=== PATIENT | female | born 1985 | race Two or more races ===

== ENCOUNTER → 2021-09-02 | Outpatient (CLI) | payer BC ==
[2021-09-02 12:11] LABS: Basophils # (auto) 0.1 10 ^3/uL (0-0.2); Eosinophils # (auto) 0.2 10 ^3/uL (0-0.8); Eosinophils % (auto) 1.6 % (0.0-7.0); Hematocrit 38.9 % (36.0-46.0); Hemoglobin 13.5 g/dL (12.2-16.2); Lymphocytes # (auto) 1.9 10 ^3/uL (0.4-5.4); Lymphocytes % (auto) 18.3 % (10.0-50.0); Mean Corpuscular Hemoglobin 30.5 pg (28.0-32.0); Mean Corpuscular Hgb Conc. 34.8 g/dL (32.0-36.0); Mean Corpuscular Volume 87.6 fL (80.0-100.0); Monocytes # (auto) 0.6 10 ^3/uL (0-1.3); Monocytes % (auto) 5.8 % (0.0-12.0); Neutrophils # (auto) 7.4 10 ^3/uL (1.6-8.6); Neutrophils % (auto) 73.3 % (37.0-80.0); Nucleated Red Blood Cells % 0.1 %; Red Blood Cells 4.44 10^6/uL (4.0-5.20); Red Cell Distribution Width 13.1 % (11.8-14.3); White Blood Cell 10.1 10^3/uL (4.4-10.8)
[2021-09-02 12:43] LABS: Alcohol, Urine < 3.0 mg/dL (0-10); Amphetamine Screen, Urine NEGATIVE (NEGATIVE); Barbiturate Scree,Urine NEGATIVE (NEGATIVE); Benzodiazephine Screen, Urine NEGATIVE (NEGATIVE); Cannabinoid Screen, Urine NEGATIVE (NEGATIVE); Cocaine Screen, Urine NEGATIVE (NEGATIVE); Opiate Scree,Urine NEGATIVE (NEGATIVE); Phencyclidine Screen, Urine NEGATIVE (NEGATIVE)
[2021-09-03 06:06] LABS: RPR Non Reactive (Non Reactive)
== END | disposition home or self-care (01) ==
LOC: LAB 11:29
PROVIDERS: ATTEND Obstetrics & Gynecology
DX: Z31.430 Encounter of female for testing for genetic disease carrier status for procreative management (principal); Z34.00 Encounter for supervision of normal first pregnancy, unspecified trimester; Z36.0 Encounter for antenatal screening for chromosomal anomalies; N39.0 Urinary tract infection, site not specified
CPT/HCPCS: 36415; 80307; 83036; 84112; 84702; 85025; 86592; 86703; 86762; 86850; 86900; 86901; 87086; 87340

== ENCOUNTER 2021-10-30 17:20 | Observation (INO) | payer BC ==
[~2021-10-30] VITALS: Ht 157.5 cm; Wt 94.8 kg
[2021-10-30] MEDS ORDERED: PREN-96 PO (17:55)
[2021-10-30] MEDS ORDERED: LABE100T4 PO (19:20)
== END 2021-10-30 18:30 | disposition home or self-care (01) ==
LOC: LDRP 17:20
PROVIDERS: ADMIT Obstetrics & Gynecology; ATTEND Obstetrics & Gynecology
DX: O98.512 Other viral diseases complicating pregnancy, second trimester (principal); U07.1 COVID-19; O10.912 Unspecified pre-existing hypertension complicating pregnancy, second trimester; O26.892 Other specified pregnancy related conditions, second trimester; R05.9 Cough, unspecified; R51.9 Headache, unspecified; Z3A.19 19 weeks gestation of pregnancy
CPT/HCPCS: 36415; 59025; 81002; 87426; 94760; G0378; U0003

== ENCOUNTER 2021-12-25 08:04 | Observation (INO) | payer BC ==
[~2021-12-25 08:04] MED LIST: LABE100T4 PO; PREN-96 PO
== END 2021-12-25 10:42 | disposition home or self-care (01) ==
LOC: LDRP 08:04 → UNDOADMOB 08:23 → LDRP 08:23 → UNDODISOB 10:42
PROVIDERS: ADMIT Obstetrics & Gynecology; ATTEND Obstetrics & Gynecology
DX: O24.419 Gestational diabetes mellitus in pregnancy, unspecified control (principal); O13.3 Gestational [pregnancy-induced] hypertension without significant proteinuria, third trimester; Z3A.28 28 weeks gestation of pregnancy
CPT/HCPCS: 59025; 76818; 81002; 82948; 82962; 94760; G0378

== ENCOUNTER 2022-01-02 08:23 | Observation (INO) | payer BC | END 2022-01-02 10:54 | disposition home or self-care (01) | LOC: LDRP 08:23 | PROVIDERS: ADMIT Obstetrics & Gynecology; ATTEND Obstetrics & Gynecology | DX: O24.419 Gestational diabetes mellitus in pregnancy, unspecified control (principal); O13.3 Gestational [pregnancy-induced] hypertension without significant proteinuria, third trimester; Z3A.29 29 weeks gestation of pregnancy | CPT/HCPCS: 59025; 76818; 81002; 82948; 82962; 94760; G0378 ==

== ENCOUNTER 2022-01-09 08:13 | Observation (INO) | payer BC ==
[2022-01-09] MEDS ORDERED: METF-370 PO (10:24)
== END 2022-01-09 10:35 | disposition home or self-care (01) ==
LOC: LDRP 08:13
PROVIDERS: ADMIT Obstetrics & Gynecology; ATTEND Obstetrics & Gynecology
DX: O10.913 Unspecified pre-existing hypertension complicating pregnancy, third trimester (principal); O24.419 Gestational diabetes mellitus in pregnancy, unspecified control; Z3A.30 30 weeks gestation of pregnancy; Z79.899 Other long term (current) drug therapy
CPT/HCPCS: 59025; 76818; 81002; 82948; 82962; 94760; G0378

== ENCOUNTER 2022-01-16 07:55 | Observation (INO) | payer BC ==
[~2022-01-16 07:55] MED LIST changes: +METF-370 PO
[2022-01-16] MEDS ORDERED: ACCU-CHEK COMFORT CURVE STRIP VI ONE (08:30)
[2022-01-16] MEDS ORDERED: LACTATED RINGER'S 1,000 ML IV ONE (10:00)
== END 2022-01-16 10:55 | disposition home or self-care (01) ==
LOC: LDRP 07:55
PROVIDERS: ADMIT Obstetrics & Gynecology Obstetrics; ATTEND Obstetrics & Gynecology Obstetrics
DX: O24.415 Gestational diabetes mellitus in pregnancy, controlled by oral hypoglycemic drugs (principal); O10.913 Unspecified pre-existing hypertension complicating pregnancy, third trimester; Z3A.31 31 weeks gestation of pregnancy; Z79.84 Long term (current) use of oral hypoglycemic drugs
CPT/HCPCS: 59025; 76818; 81002; 82948; 82962; 94760; 96360; 96361; G0378

== ENCOUNTER 2022-01-19 07:13 | Observation (INO) | payer BC ==
[2022-01-19] MEDS ORDERED: GLIP5TAB12 PO (17:35)
== END 2022-01-19 17:50 | disposition home or self-care (01) ==
LOC: LDRP 15:00 → UNDOADMOB 15:00 → LDRP 16:40 → UNDODISOB 17:50
PROVIDERS: ADMIT Obstetrics & Gynecology; ATTEND Obstetrics & Gynecology
DX: O24.419 Gestational diabetes mellitus in pregnancy, unspecified control (principal); O13.3 Gestational [pregnancy-induced] hypertension without significant proteinuria, third trimester; Z3A.31 31 weeks gestation of pregnancy; Z79.899 Other long term (current) drug therapy
CPT/HCPCS: 59025; 76818; 81002; 82948; 82962; 94760; G0378

== ENCOUNTER 2022-01-22 19:07 | Observation (INO) | payer BC ==
[~2022-01-22 19:07] MED LIST changes: +GLIP5TAB12 PO
== END 2022-01-22 21:58 | disposition home or self-care (01) ==
LOC: LDRP 19:07
PROVIDERS: ADMIT Obstetrics & Gynecology; ATTEND Obstetrics & Gynecology
DX: O24.419 Gestational diabetes mellitus in pregnancy, unspecified control (principal); O60.03 Preterm labor without delivery, third trimester; Z3A.32 32 weeks gestation of pregnancy; Z79.899 Other long term (current) drug therapy
CPT/HCPCS: 59025; 76818; 81002; 82948; 82962; G0378

== ENCOUNTER 2022-01-26 19:07 | Observation (INO) | payer BC | END 2022-01-26 21:07 | disposition home or self-care (01) | LOC: LDRP 19:07 | PROVIDERS: ADMIT Obstetrics & Gynecology; ATTEND Obstetrics & Gynecology | DX: O24.419 Gestational diabetes mellitus in pregnancy, unspecified control (principal); O13.3 Gestational [pregnancy-induced] hypertension without significant proteinuria, third trimester; Z3A.34 34 weeks gestation of pregnancy | CPT/HCPCS: 59025; 76818; 81002; 82948; 82962; 94760; G0378 ==

== ENCOUNTER 2022-01-29 11:15 | Observation (INO) | payer BC ==
[~2022-01-29] VITALS: Ht 30.5 cm; Wt 0.5 kg
[2022-01-29] MEDS ORDERED: LACTATED RINGER'S 1,000 ML IV ONE (13:00)
[2022-01-29] MEDS: TERBUTALINE SULFATE 1 MG/ML 1ML VIAL SC SCH ×3 (13:53→14:25)
[2022-01-29] MEDS ORDERED: BETAMETHASONE ACET (30mg/5ml) 5ml Vial 6mg/ml IM ONE (15:00)
[2022-01-29 15:49] LABS: Urine Bacteria FEW /hpf (None Seen); Urine Blood Negative /uL (Negative); Urine Specific Gravity 1.002 (1.001-1.035); Urine WBC <1 /hpf (0 - 5)
[2022-01-29] MEDS ORDERED: NIFEdipine 10 MG CAP PO SCH (18:00)
== END 2022-01-29 16:48 | disposition home or self-care (01) ==
LOC: UNDOADMOB 11:15 → LDRP 11:15
PROVIDERS: ADMIT Obstetrics & Gynecology; ATTEND Obstetrics & Gynecology
DX: O24.419 Gestational diabetes mellitus in pregnancy, unspecified control (principal); O60.03 Preterm labor without delivery, third trimester; O21.2 Late vomiting of pregnancy; Z3A.33 33 weeks gestation of pregnancy; Z79.899 Other long term (current) drug therapy
CPT/HCPCS: 59025; 76817; 76818; 81001; 81002; 82962; 94760; 96360; 96361; 96372; G0378; J0702; J3105; 96365; 96366

== ENCOUNTER 2022-01-30 15:28 | Observation (INO) | payer BC ==
[~2022-01-30] VITALS: Ht 157.5 cm; Wt 91.2 kg
[~2022-01-30 15:28] MED LIST changes: -METF-370 PO
[2022-01-30] MEDS ORDERED: BETAMETHASONE ACET (30mg/5ml) 5ml Vial 6mg/ml IM ONE (15:45)
== END 2022-01-30 16:15 | disposition home or self-care (01) ==
LOC: LDRP 15:28
PROVIDERS: ADMIT Obstetrics & Gynecology; ATTEND Obstetrics & Gynecology
DX: O60.03 Preterm labor without delivery, third trimester (principal); Z3A.33 33 weeks gestation of pregnancy
CPT/HCPCS: 96372; G0378

== ENCOUNTER 2022-02-02 14:07 | Observation (INO) | payer BC ==
[2022-02-02] MEDS ORDERED: NIF10C PO (19:28)
== END 2022-02-02 20:30 | disposition home or self-care (01) ==
LOC: UNDOADMOB 14:07 → LDRP 14:07 → UNDODISOB 20:30
PROVIDERS: ADMIT Obstetrics & Gynecology; ATTEND Obstetrics & Gynecology
DX: O24.419 Gestational diabetes mellitus in pregnancy, unspecified control (principal); O13.3 Gestational [pregnancy-induced] hypertension without significant proteinuria, third trimester; O36.8930 Maternal care for other specified fetal problems, third trimester, not applicable or unspecified; O62.9 Abnormality of forces of labor, unspecified; Z3A.33 33 weeks gestation of pregnancy
CPT/HCPCS: 59025; 76818; 81002; 82962; G0378

== ENCOUNTER 2022-02-05 19:00 | Observation (INO) | payer BC ==
[~2022-02-05] VITALS: Ht 154.9 cm; Wt 91.2 kg
[~2022-02-05 19:00] MED LIST changes: -LABE100T4 PO; +NIF10C PO
[2022-02-05] MEDS ORDERED: INSU1INJ19 SC ×2 (20:13→21:08)
[2022-02-05] MEDS ORDERED: GLYB2.5T8 PO (21:08)
== END 2022-02-05 21:29 | disposition home or self-care (01) ==
LOC: LDRP 19:00
PROVIDERS: ADMIT Obstetrics & Gynecology; ATTEND Obstetrics & Gynecology
DX: O24.419 Gestational diabetes mellitus in pregnancy, unspecified control (principal); O26.893 Other specified pregnancy related conditions, third trimester; R51.9 Headache, unspecified; Z3A.34 34 weeks gestation of pregnancy
CPT/HCPCS: 59025; 76818; 81002; 82948; 82962; 94760; G0378

== ENCOUNTER 2022-02-09 18:45 | Observation (INO) | payer BC ==
[~2022-02-09] VITALS: Ht 157.5 cm; Wt 91.2 kg
[~2022-02-09 18:45] MED LIST changes: -GLIP5TAB12 PO; +GLYB2.5T8 PO; +INSU1INJ19 SC
== END 2022-02-09 20:25 | disposition home or self-care (01) ==
LOC: LDRP 18:45
PROVIDERS: ADMIT Obstetrics & Gynecology; ATTEND Obstetrics & Gynecology
DX: O24.419 Gestational diabetes mellitus in pregnancy, unspecified control (principal); O10.913 Unspecified pre-existing hypertension complicating pregnancy, third trimester; O60.03 Preterm labor without delivery, third trimester; Z3A.34 34 weeks gestation of pregnancy; Z91.040 Latex allergy status
CPT/HCPCS: 59025; 76818; 81002; 82948; 82962; 94760; G0378

== ENCOUNTER 2022-02-12 10:58 | Observation (INO) | payer BC | END 2022-02-12 12:51 | disposition home or self-care (01) | LOC: LDRP 10:58 → UNDOADMOB 10:58 → LDRP 11:12 → UNDODISOB 12:51 | PROVIDERS: ADMIT Obstetrics & Gynecology; ATTEND Obstetrics & Gynecology | DX: O24.419 Gestational diabetes mellitus in pregnancy, unspecified control (principal); Z3A.35 35 weeks gestation of pregnancy; Z79.899 Other long term (current) drug therapy | CPT/HCPCS: 59025; 76818; 81002; 82948; 82962; G0378 ==

== ENCOUNTER 2022-02-16 18:52 | Observation (INO) | payer BC | END 2022-02-16 20:32 | disposition home or self-care (01) | LOC: LDRP 18:52 | PROVIDERS: ADMIT Obstetrics & Gynecology; ATTEND Obstetrics & Gynecology | DX: O24.419 Gestational diabetes mellitus in pregnancy, unspecified control (principal); O60.03 Preterm labor without delivery, third trimester; O10.913 Unspecified pre-existing hypertension complicating pregnancy, third trimester; Z3A.35 35 weeks gestation of pregnancy | CPT/HCPCS: 59025; 76818; 81002; 82948; 82962; 94760; G0378 ==

== ENCOUNTER → 2022-02-17 | Outpatient (CLI) | payer BC ==
[2022-02-17 12:57] LABS: Basophils # (auto) 0 10 ^3/uL (0-0.2); Basophils % (auto) 0.2 % (0.0-2.0); Eosinophils # (auto) 0.1 10 ^3/uL (0-0.8); Eosinophils % (auto) 1.1 % (0.0-7.0); Hematocrit 36.5 % (36.0-46.0); Lymphocytes # (auto) 1.5 10 ^3/uL (0.4-5.4); Lymphocytes % (auto) 16.8 % (10.0-50.0); Mean Corpuscular Hemoglobin 28.2 pg (28.0-32.0); Mean Corpuscular Hgb Conc. 32.8 g/dL (32.0-36.0); Mean Corpuscular Volume 85.9 fL (80.0-100.0); Monocytes # (auto) 0.6 10 ^3/uL (0-1.3); Monocytes % (auto) 6.7 % (0.0-12.0); Neutrophils # (auto) 6.5 10 ^3/uL (1.6-8.6); Neutrophils % (auto) 75.2 % (37.0-80.0); Red Blood Cells 4.25 10^6/uL (4.0-5.20); Red Cell Distribution Width 13.7 % (11.8-14.3); White Blood Cell 8.7 10^3/uL (4.4-10.8)
[2022-02-18 07:06] LABS: RPR Non Reactive (Non Reactive)
== END | disposition home or self-care (01) ==
LOC: LAB 12:21
PROVIDERS: ATTEND Obstetrics & Gynecology
DX: Z34.80 Encounter for supervision of other normal pregnancy, unspecified trimester (principal); Z3A.00 Weeks of gestation of pregnancy not specified
CPT/HCPCS: 36415; 84112; 85025; 86592

== ENCOUNTER 2022-02-19 18:46 | Observation (INO) | payer BC ==
[~2022-02-19] VITALS: Ht 157.5 cm; Wt 93.4 kg
== END 2022-02-19 21:53 | disposition home or self-care (01) ==
LOC: LDRP 18:46
PROVIDERS: ADMIT Obstetrics & Gynecology; ATTEND Obstetrics & Gynecology
DX: O24.410 Gestational diabetes mellitus in pregnancy, diet controlled (principal); O60.03 Preterm labor without delivery, third trimester; O10.913 Unspecified pre-existing hypertension complicating pregnancy, third trimester; Z3A.36 36 weeks gestation of pregnancy
CPT/HCPCS: 59025; 76818; 81002; 82948; 82962; G0378

== ENCOUNTER 2022-02-23 18:50 | Observation (INO) | payer BC | END 2022-02-23 21:48 | disposition home or self-care (01) | LOC: LDRP 18:50 | PROVIDERS: ADMIT Obstetrics & Gynecology; ATTEND Obstetrics & Gynecology | DX: O24.419 Gestational diabetes mellitus in pregnancy, unspecified control (principal); O60.03 Preterm labor without delivery, third trimester; O10.913 Unspecified pre-existing hypertension complicating pregnancy, third trimester; Z3A.36 36 weeks gestation of pregnancy | CPT/HCPCS: 59025; 76818; 81002; 82948; 82962; 94760; G0378 ==

== ENCOUNTER 2022-02-26 19:08 | Observation (INO) | payer BC ==
[~2022-02-26] VITALS: Ht 157.5 cm; Wt 93.9 kg
[2022-02-26 21:25] LABS: Basophils # (auto) 0 10 ^3/uL (0-0.2); Basophils % (auto) 0.3 % (0.0-2.0); Eosinophils # (auto) 0.1 10 ^3/uL (0-0.8); Eosinophils % (auto) 0.9 % (0.0-7.0); Hematocrit 35.7 % (36.0-46.0); Hemoglobin 12.1 g/dL (12.2-16.2); Lymphocytes % (auto) 21.1 % (10.0-50.0); Mean Corpuscular Hemoglobin 28.4 pg (28.0-32.0); Mean Corpuscular Hgb Conc. 33.9 g/dL (32.0-36.0); Mean Corpuscular Volume 83.8 fL (80.0-100.0); Monocytes # (auto) 0.6 10 ^3/uL (0-1.3); Monocytes % (auto) 6.7 % (0.0-12.0); Neutrophils # (auto) 6.8 10 ^3/uL (1.6-8.6); Red Blood Cells 4.26 10^6/uL (4.0-5.20); Red Cell Distribution Width 14.4 % (11.8-14.3); White Blood Cell 9.6 10^3/uL (4.4-10.8)
[2022-02-26 21:30] LABS: Urine Bacteria MOD /hpf (None Seen); Urine Blood Negative /uL (Negative); Urine Specific Gravity 1.006 (1.001-1.035); Urine WBC 2 /hpf (0 - 5)
[2022-02-26] MEDS ORDERED: LABETALOL HCL 200 MG TAB PO ONE (21:30)
[2022-02-26 21:42] LABS: Albumin 2.5 g/dL (3.4-5.0); Calcium 8.9 mg/dL (8.5-10.1); INR 0.87 (0.9-1.15); Partial Thromboplastin Time 28.2 sec (24.6-33.4); Potassium 3.5 mmol/L (3.5-5.1)
[2022-02-26 21:44] LABS: Protein, Urine 7.1 mg/dL (0.0-11.9)
[2022-02-26 21:45] LABS: BUN/Creatinine Ratio 14.6; Bilirubin, Total 0.2 mg/dL (0.2-1.0); Total Protein 6.6 g/dL (6.4-8.2)
== END 2022-02-26 23:43 | disposition home or self-care (01) ==
LOC: LDRP 19:08
PROVIDERS: ADMIT Obstetrics & Gynecology; ATTEND Obstetrics & Gynecology
DX: O24.419 Gestational diabetes mellitus in pregnancy, unspecified control (principal); O10.913 Unspecified pre-existing hypertension complicating pregnancy, third trimester; Z91.040 Latex allergy status; Z3A.37 37 weeks gestation of pregnancy
CPT/HCPCS: 36415; 59025; 76818; 80053; 81001; 81002; 82570; 82948; 82962; 84156; 84550; 85025; 85384; 85610; 85730; 94760; G0378

== ENCOUNTER 2022-02-28 07:53 | Observation (INO) | payer BC ==
[~2022-02-28 07:53] MED LIST changes: -NIF10C PO
[2022-02-28] MEDS ORDERED: LABE100T4 PO (08:29)
[2022-02-28 09:04] LABS: Urine Bacteria NONE SEEN /hpf (None Seen); Urine Blood Negative /uL (Negative); Urine Mucus FEW (None Seen); Urine Specific Gravity 1.012 (1.001-1.035); Urine WBC <1 /hpf (0 - 5)
[2022-02-28 10:09] LABS: Protein, Urine 7.5 mg/dL (0.0-11.9)
== END 2022-02-28 10:42 | disposition home or self-care (01) ==
LOC: LDRP 07:53
PROVIDERS: ADMIT Obstetrics & Gynecology; ATTEND Obstetrics & Gynecology
DX: O13.3 Gestational [pregnancy-induced] hypertension without significant proteinuria, third trimester (principal); O24.419 Gestational diabetes mellitus in pregnancy, unspecified control; Z3A.37 37 weeks gestation of pregnancy; Z91.040 Latex allergy status
CPT/HCPCS: 59025; 76818; 81001; 81002; 82570; 82948; 82962; 84156; G0378

== ENCOUNTER 2022-03-02 18:49 | Observation (INO) | payer BC ==
[~2022-03-02] VITALS: Ht 157.5 cm; Wt 93.9 kg
[~2022-03-02 18:49] MED LIST changes: +LABE100T4 PO
== END 2022-03-02 20:23 | disposition home or self-care (01) ==
LOC: LDRP 18:49
PROVIDERS: ADMIT Obstetrics & Gynecology; ATTEND Obstetrics & Gynecology
DX: O24.419 Gestational diabetes mellitus in pregnancy, unspecified control (principal); O10.913 Unspecified pre-existing hypertension complicating pregnancy, third trimester; Z3A.37 37 weeks gestation of pregnancy
CPT/HCPCS: 59025; 76818; 81002; 82948; 82962; 94760; G0378

== ENCOUNTER 2022-03-05 08:35 | Observation (INO) | payer BC ==
[~2022-03-05] VITALS: Ht 162.6 cm; Wt 93.4 kg
[2022-03-05] MEDS ORDERED: TERBUTALINE SULFATE 1 MG/ML 1ML VIAL SC ONE ×2 (10:55→11:32)
[2022-03-05] MEDS: TERBUTALINE SULFATE 1 MG/ML 1ML VIAL SC SCH ×2 (11:39→12:05)
== END 2022-03-05 13:34 | disposition home or self-care (01) ==
LOC: UNDOADMOB 08:35 → LDRP 08:35
PROVIDERS: ADMIT Obstetrics & Gynecology; ATTEND Obstetrics & Gynecology
DX: O24.419 Gestational diabetes mellitus in pregnancy, unspecified control (principal); O10.913 Unspecified pre-existing hypertension complicating pregnancy, third trimester; Z3A.38 38 weeks gestation of pregnancy
CPT/HCPCS: 59025; 76818; 81002; 82948; 94760; 96372; G0378; J3105

== ENCOUNTER 2022-03-07 11:31 | Observation (INO) | payer BC | END 2022-03-07 13:07 | disposition home or self-care (01) | LOC: LDRP 11:31 | PROVIDERS: ADMIT Obstetrics & Gynecology; ATTEND Obstetrics & Gynecology | DX: O24.419 Gestational diabetes mellitus in pregnancy, unspecified control (principal); O10.913 Unspecified pre-existing hypertension complicating pregnancy, third trimester; Z3A.38 38 weeks gestation of pregnancy; Z98.891 History of uterine scar from previous surgery | CPT/HCPCS: 59025; 76818; 81002; 82948; 82962; 94760; G0378 ==

== ENCOUNTER 2022-03-10 07:13 | Inpatient (IN) | payer BC ==
[~2022-03-10] VITALS: Ht 165.1 cm; Wt 94.3 kg
[2022-03-10] VITALS (9 sets, daily range): BP systolic 126–143; BP diastolic 72–90
[2022-03-10 12:34] LABS: Basophils # (auto) 0 10 ^3/uL (0-0.2); Basophils % (auto) 0.3 % (0.0-2.0); Eosinophils # (auto) 0.1 10 ^3/uL (0-0.8); Eosinophils % (auto) 0.6 % (0.0-7.0); Hematocrit 35.8 % (36.0-46.0); Hemoglobin 11.9 g/dL (12.2-16.2); Lymphocytes # (auto) 1.6 10 ^3/uL (0.4-5.4); Lymphocytes % (auto) 15.5 % (10.0-50.0); Mean Corpuscular Hemoglobin 28.5 pg (28.0-32.0); Mean Corpuscular Hgb Conc. 33.4 g/dL (32.0-36.0); Mean Corpuscular Volume 85.4 fL (80.0-100.0); Monocytes # (auto) 0.6 10 ^3/uL (0-1.3); Monocytes % (auto) 6.4 % (0.0-12.0); Neutrophils # (auto) 7.7 10 ^3/uL (1.6-8.6); Neutrophils % (auto) 77.2 % (37.0-80.0); Nucleated Red Blood Cells % 0.1 %; Red Blood Cells 4.19 10^6/uL (4.0-5.20); Red Cell Distribution Width 14.5 % (11.8-14.3)
[2022-03-10 12:45] LABS: Urine Bacteria MANY /hpf (None Seen); Urine Blood Negative /uL (Negative); Urine Hyaline Cast FEW /lpf (0 - 2); Urine Mucus FEW (None Seen); Urine Specific Gravity 1.019 (1.001-1.035); Urine WBC 1 /hpf (0 - 5)
[2022-03-10 13:06] LABS: Calcium 9.2 mg/dL (8.5-10.1); Potassium 3.5 mmol/L (3.5-5.1)
[2022-03-10 13:08] LABS: Alcohol, Urine < 3.0 mg/dL (0-10); Amphetamine Screen, Urine NEGATIVE (NEGATIVE); Barbiturate Scree,Urine NEGATIVE (NEGATIVE); Benzodiazephine Screen, Urine NEGATIVE (NEGATIVE); Cannabinoid Screen, Urine NEGATIVE (NEGATIVE); Cocaine Screen, Urine NEGATIVE (NEGATIVE); Opiate Scree,Urine NEGATIVE (NEGATIVE); Phencyclidine Screen, Urine NEGATIVE (NEGATIVE)
[2022-03-10 13:09] LABS: Protein, Urine 22.4 mg/dL (0.0-11.9)
[2022-03-10 13:12] LABS: Albumin 2.3 g/dL (3.4-5.0); BUN/Creatinine Ratio 22.2; Bilirubin, Total 0.3 mg/dL (0.2-1.0); Total Protein 6.2 g/dL (6.4-8.2); Uric Acid 3.5 mg/dL (2.6-6.0)
[2022-03-10 13:14] LABS: INR 0.87 (0.9-1.15); Partial Thromboplastin Time 27.5 sec (24.6-33.4)
[2022-03-10] MEDS ORDERED: WITCH HAZEL-GLYCERIN PAD TOP PRN (13:30)
[2022-03-10] MEDS ORDERED: PHISODERM TOP SOLN 240ML BTL TOP PRN (13:30)
[2022-03-10] MEDS ORDERED: ceFAZolin 1GM/50ML 50 ML IV ONE (13:30)
[2022-03-10] MEDS ORDERED: DERMOPLAST 60ML BOTTLE TOP PRN (13:30)
[2022-03-10] MEDS: LACTATED RINGER'S 1,000 ML IV SCH ×2 (13:45→20:16)
[2022-03-10] MEDS ORDERED: DOCU-94 PO (14:39)
[2022-03-10] MEDS ORDERED: IBUP800T27 PO (14:39)
[2022-03-10] MEDS ORDERED: HYDR-4902 PO (14:39)
[2022-03-10] MEDS ORDERED: TETRACAINE 1% INJ 2 ML VIAL IJ ONE (15:25)
[2022-03-10] MEDS ORDERED: MORPHINE SULF PF 5 MG/10 ML VIAL ONE (15:27)
[2022-03-10] MEDS ORDERED: oxyTOCIN 10 UNIT/ML 10ML VIAL ONE (15:45)
[2022-03-10] MEDS ORDERED: ONDANSETRON HCL 4 MG/2 ML VIAL ONE (15:45)
[2022-03-10] MEDS ORDERED: ePHEDrine SULFATE 50 MG/ML AMP ONE (15:45)
[2022-03-10] MEDS ORDERED: ONDANSETRON HCL 4 MG/2 ML VIAL IV PRN (16:00)
[2022-03-10] MEDS ORDERED: LACT. RINGERS/OXYTOCIN 20UNITS 1,000 ML IV ONE (16:00)
[2022-03-10] MEDS ORDERED: ceFAZolin 1GM/50ML 50 ML IV SCH (16:00)
[2022-03-10] MEDS ORDERED: fentaNYL CITRATE 100 MCG/2 ML VL ONE (16:34)
[2022-03-10] MEDS ORDERED: MIDAZOLAM HCL 2MG/2ML 2ml VIAL (1mg/ml) ONE (16:34)
[2022-03-10] MEDS ORDERED: diphenhdrAMINE HCL 50 MG/1 ML VL IV PRN (17:30)
[2022-03-10] MEDS ORDERED: NALBUPHINE HCL 10 MG/1ml INJECTION SUBCUT ONE (17:30)
[2022-03-10] MEDS ORDERED: KETOROLAC TROMETH 30 MG/ML 1ML VIAL IV PRN (17:30)
[2022-03-10] MEDS ORDERED: NALOXONE HCL 0.4 MG/ML VIAL IV PRN (17:30)
[2022-03-10] MEDS ORDERED: HYDROmorphone HCL 2 MG/ML VL/or syr IV PRN (17:30)
[2022-03-10] MEDS ORDERED: DexAMETHasone SOD PHOS 10MG/1ML VIAL INJ IV PRN (17:30)
[2022-03-10] MEDS: SODIUM CITR/CITRIC ACID ORAL SOLN 30 ML PO SCH (18:00)
[2022-03-10] MEDS ORDERED: ACETAMINOPHEN IV 1000 MG/100ML (10MG/ML) IV PRN (18:30)
[2022-03-10] MEDS: ONDANSETRON HCL 4 MG/2 ML VIAL IV PRN (19:28)
[2022-03-10 23:15] LABS: Basophils # (auto) 0.1 10 ^3/uL (0-0.2); Basophils % (auto) 0.3 % (0.0-2.0); Eosinophils # (auto) 0 10 ^3/uL (0-0.8); Eosinophils % (auto) 0.2 % (0.0-7.0); Hematocrit 37.7 % (36.0-46.0); Hemoglobin 12.6 g/dL (12.2-16.2); Lymphocytes % (auto) 6.8 % (10.0-50.0); Mean Corpuscular Hemoglobin 28.1 pg (28.0-32.0); Mean Corpuscular Hgb Conc. 33.4 g/dL (32.0-36.0); Mean Corpuscular Volume 84.2 fL (80.0-100.0); Monocytes # (auto) 0.6 10 ^3/uL (0-1.3); Monocytes % (auto) 3.7 % (0.0-12.0); Neutrophils # (auto) 13.4 10 ^3/uL (1.6-8.6); Red Blood Cells 4.48 10^6/uL (4.0-5.20); Red Cell Distribution Width 14.8 % (11.8-14.3)
[2022-03-10] MEDS: ceFAZolin 1GM/50ML 50 ML IV SCH (23:58)
[2022-03-11] VITALS (20 sets, daily range): BP systolic 104–144; BP diastolic 61–91
[2022-03-11] MEDS: METOCLOPRAMIDE HCL 5MG/ml INJ 2ml VIAL IV SCH ×4 (00:55→22:32)
[2022-03-11] MEDS: ONDANSETRON HCL 4 MG/2 ML VIAL IV PRN (00:55)
[2022-03-11] MEDS: ONDANSETRON HCL 4 MG/2 ML VIAL IV SCH ×5 (05:23→22:00)
[2022-03-11] MEDS: LACTATED RINGER'S 1,000 ML IV SCH ×3 (05:30→21:30)
[2022-03-11 06:06] LABS: RPR Non Reactive (Non Reactive)
[2022-03-11] MEDS ORDERED: ONDANSETRON HCL 4 MG/2 ML VIAL IV ONE (07:15)
[2022-03-11] MEDS ORDERED: ceFAZolin 1GM/50ML 50 ML IV ONE (07:15)
[2022-03-11] MEDS ORDERED: LACTATED RINGER'S 1,000 ML IV ONE (07:15)
[2022-03-11 08:32] LABS: Basophils # (auto) 0.1 10 ^3/uL (0-0.2); Basophils % (auto) 0.6 % (0.0-2.0); Eosinophils # (auto) 0 10 ^3/uL (0-0.8); Eosinophils % (auto) 0.3 % (0.0-7.0); Hematocrit 34.5 % (36.0-46.0); Hemoglobin 11.5 g/dL (12.2-16.2); Lymphocytes # (auto) 1.5 10 ^3/uL (0.4-5.4); Mean Corpuscular Hemoglobin 28.1 pg (28.0-32.0); Mean Corpuscular Hgb Conc. 33.4 g/dL (32.0-36.0); Mean Corpuscular Volume 84.2 fL (80.0-100.0); Monocytes # (auto) 0.8 10 ^3/uL (0-1.3); Monocytes % (auto) 6.9 % (0.0-12.0); Neutrophils # (auto) 9.3 10 ^3/uL (1.6-8.6); Neutrophils % (auto) 79.2 % (37.0-80.0); Red Cell Distribution Width 14.7 % (11.8-14.3); White Blood Cell 11.7 10^3/uL (4.4-10.8)
[2022-03-11] MEDS: SODIUM CITR/CITRIC ACID ORAL SOLN 30 ML PO SCH (09:00)
[2022-03-11] MEDS: ceFAZolin 1GM/50ML 50 ML IV SCH ×2 (10:40→17:33)
[2022-03-11] MEDS ORDERED: HYDROcodone-ACET 5/325MG TAB PO PRN (10:45)
[2022-03-11] MEDS: HYDROcodone-ACET 5/325MG TAB PO PRN ×2 (11:02→21:10)
[2022-03-11] MEDS: SIMETHICONE 80 MG CHEWABLE TABLET PO SCH ×3 (12:00→22:32)
[2022-03-11] MEDS: IBUPROFEN 800 MG TAB PO PRN (14:05)
[2022-03-11] MEDS ORDERED: TETANUS-DIPTH-ACEL PERTUSSIS 0.5ML SYR Tdap IM ONE (21:45)
[2022-03-11] MEDS: DOCUSATE SOD 100 MG CAP PO SCH (22:32)
[2022-03-12] MEDS: ONDANSETRON HCL 4 MG/2 ML VIAL IV SCH ×3 (02:00→10:00)
[2022-03-12] MEDS: IBUPROFEN 800 MG TAB PO PRN (03:06)
[2022-03-12 03:30] VITALS: BP 124/77
[2022-03-12] MEDS: LACTATED RINGER'S 1,000 ML IV SCH (05:30)
[2022-03-12] MEDS: METOCLOPRAMIDE HCL 5MG/ml INJ 2ml VIAL IV SCH (06:00)
[2022-03-12] MEDS: SIMETHICONE 80 MG CHEWABLE TABLET PO SCH (06:00)
[2022-03-12 07:00] VITALS: BP 135/80
[2022-03-12] MEDS: HYDROcodone-ACET 5/325MG TAB PO PRN (07:38)
[2022-03-12] MEDS ORDERED: BISACODYL 10 MG RECT SUPP PR ONE (08:30)
[2022-03-12] MEDS: DOCUSATE SOD 100 MG CAP PO SCH (10:00)
[2022-03-12 11:00] VITALS: BP 128/79
[2022-03-12 12:22] VITALS: BP 128/81
== END 2022-03-12 12:22 | disposition home or self-care (01) | DRG 783 ==
LOC: LDRP 10:28 → OBSVTOIN 13:18 → LDRP 13:19
PROVIDERS: ADMIT Obstetrics & Gynecology; ATTEND Obstetrics & Gynecology
PROC: 0UL70CZ Occlusion of Bilateral Fallopian Tubes with Extraluminal Device, Open Approach (ICD-10-PCS; 2022-03-10)
PROC: 10D00Z1 Extraction of Products of Conception, Low, Open Approach (ICD-10-PCS; principal; 2022-03-10 15:44)
DX: O69.81X0 Labor and delivery complicated by cord around neck, without compression, not applicable or unspecified (principal); O60.23X0 Term delivery with preterm labor, third trimester, not applicable or unspecified; Z37.0 Single live birth; O34.211 Maternal care for low transverse scar from previous cesarean delivery; Z30.2 Encounter for sterilization; Z3A.38 38 weeks gestation of pregnancy; O99.892 Other specified diseases and conditions complicating childbirth; N73.6 Female pelvic peritoneal adhesions (postinfective); Z20.822 Contact with and (suspected) exposure to COVID-19
CPT/HCPCS: 36415; 59025; 76818; 80053; 80307; 81001; 81002; 82570; 82948; 82962; 84156; 84550; 85025; 85610; 85730; 86592; 86850; 86900; 86901; 90715; 94760; 94762; 96360; 96361; 96365; 96366; 96372; 96375; G0378; J0131; J0690; J2250; J2405; J2590

== ENCOUNTER → 2022-07-16 | Outpatient (CLI) | payer BC ==
[~2022-07-16] MED LIST changes: +DOCU-94 PO; +HYDR-4902 PO; +IBUP800T27 PO
[2022-07-16 10:19] LABS: Basophils # (auto) 0.1 10 ^3/uL (0-0.2); Basophils % (auto) 0.6 % (0.0-2.0); Eosinophils # (auto) 0.4 10 ^3/uL (0-0.8); Eosinophils % (auto) 3.9 % (0.0-7.0); Hematocrit 43.1 % (36.0-46.0); Hemoglobin 14.8 g/dL (12.2-16.2); Lymphocytes # (auto) 2.1 10 ^3/uL (0.4-5.4); Lymphocytes % (auto) 22.2 % (10.0-50.0); Mean Corpuscular Hemoglobin 30.8 pg (28.0-32.0); Mean Corpuscular Hgb Conc. 34.2 g/dL (32.0-36.0); Mean Corpuscular Volume 89.9 fL (80.0-100.0); Monocytes # (auto) 0.7 10 ^3/uL (0-1.3); Monocytes % (auto) 7.4 % (0.0-12.0); Neutrophils # (auto) 6.1 10 ^3/uL (1.6-8.6); Neutrophils % (auto) 65.9 % (37.0-80.0); White Blood Cell 9.3 10^3/uL (4.4-10.8)
[2022-07-16 10:34] LABS: Urine Bacteria FEW /hpf (None Seen); Urine Blood Negative /uL (Negative); Urine Mucus FEW (None Seen); Urine Specific Gravity 1.011 (1.001-1.035); Urine WBC 3 /hpf (0 - 5)
[2022-07-16 10:42] LABS: Albumin 3.8 g/dL (3.4-5.0); Calcium 9.2 mg/dL (8.5-10.1); Potassium 4.2 mmol/L (3.5-5.1)
[2022-07-16 10:47] LABS: BUN/Creatinine Ratio 15.5; Bilirubin, Total 0.5 mg/dL (0.2-1.0); Total Protein 7.8 g/dL (6.4-8.2)
== END | disposition home or self-care (01) ==
LOC: LAB 09:54
PROVIDERS: ATTEND Internal Medicine
DX: Z11.1 Encounter for screening for respiratory tuberculosis (principal)
CPT/HCPCS: 36415; 80053; 80061; 81001; 83036; 84439; 84443; 85025